=== PATIENT | male | born 2000 | race Two or more races ===

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

== ENCOUNTER 2019-04-11 08:51 | Emergency (ER) | payer MEDICAID, OTHER ==
[~2019-04-11] VITALS: Ht 172.7 cm; Wt 75.7 kg
--- NOTE | 2019-04-11 08:57 | NUR ---
SEEN AND EXAMINED BY
--- NOTE | 2019-04-11 09:05 | NUR ---
PT TO ER BED 3 W/ MOTHER C/O RIGHT HIP PAIN. PATIENT STATES THAT HE WAS DANCING WHEN HE MADE A MISSTEP AND LANDED ON HIS RIGHT HIP. PT DENIES HEAD TRAUMA OR LOSS OF CONSCIOUSNESS. RIGHT HIP SHARP PAIN RADIATING DOWN TO THE THIGHS. AMBULATORY W/ A LIMP. AAOX4. NO SOB. DENIES OTHER PAIN.
[2019-04-11] MEDS ORDERED: IBUPROFEN 400 MG TABLET ONE (09:08)
--- NOTE | 2019-04-11 09:13 | NUR ---
DEPARTMENT CHAIRPERSON AT BEDSIDE FOR PATIENT'S XRAY
[2019-04-11] MEDS ORDERED: IBUPROFEN 400 MG TABLET PO ONE (09:30)
[2019-04-11 10:12] VITALS: BP 136/75
--- NOTE | 2019-04-11 10:12 | NUR ---
Patient discharged to home in stable condition. Written and verbal after care instructions given. Patient verbalizes understanding of instruction.
== END 2019-04-11 10:12 | disposition home or self-care (01) ==
LOC: ER 08:52
DX: S70.01XA Contusion of right hip, initial encounter (principal); W01.0XXA Fall on same level from slipping, tripping and stumbling without subsequent striking against object, initial encounter; Y93.89 Activity, other specified; Y92.89 Other specified places as the place of occurrence of the external cause; Y99.8 Other external cause status
CPT/HCPCS: 72170-TC